=== PATIENT | male | born 1945 | race Caucasian/White ===

== ENCOUNTER 2022-05-26 11:42 | Emergency (ER) | payer OTHER ==
[~2022-05-26] VITALS: Ht 188 cm; Wt 117.9 kg
[2022-05-26] MEDS ORDERED: LASIX20 MG PO (12:07)
[2022-05-26] MEDS ORDERED: SYNTHROID125 MCG PO (12:08)
[2022-05-26] MEDS ORDERED: LIPITOR20 MG PO (12:08)
[2022-05-26] MEDS ORDERED: FLUOXETINE HCL60 MG PO (12:08)
[2022-05-26] MEDS ORDERED: NORVASC5 MG PO (12:08)
[2022-05-26] MEDS ORDERED: TAMS0.4C PO (12:08)
[2022-05-26] MEDS ORDERED: ELIQUIS2.5 MG PO (12:09)
[2022-05-26] MEDS ORDERED: FLECAINIDE ACE100 MG PO (12:09)
[2022-05-26] MEDS ORDERED: AMBIEN10 MG PO (12:09)
== END 2022-05-26 16:55 | disposition home or self-care (01) ==
LOC: ER 11:42
DX: S80.11XA Contusion of right lower leg, initial encounter (principal); W19.XXXA Unspecified fall, initial encounter; Y93.79 Activity, other specified sports and athletics; Y92.9 Unspecified place or not applicable; Y99.8 Other external cause status; I73.89 Other specified peripheral vascular diseases; R60.0 Localized edema; Z88.8 Allergy status to other drugs, medicaments and biological substances; M79.604 Pain in right leg